=== PATIENT | male | born 1990 | race Caucasian/White ===

== ENCOUNTER 2024-11-24 16:05 | Emergency (ER) | payer OTHER, SELFPAY ==
[2024-11-24 16:06] VITALS: BP 144/102; PULSE 104; RESP 16; TEMP 38.7; O2SAT 98; BMI 27.5
--- NOTE | 2024-11-24 19:07 | EX.ED.DYSGE1 ---
HPI <RADHA Hopkins - Last Filed: 11/24/24 21:13> History of Present Illness Chief Complaint: Fever Narrative Narrative: Patient presenting today due to concerns for fevers, chills, body aches, and a headache he has had over the past 2 days. He also reports pain to the left side of his neck that started after he had been laying in bed for several hours. He denies abdominal pain, nausea, vomiting, urinary symptoms, nasal congestion, and cough. PFSH <RADHA Hopkins - Last Filed: 11/24/24 21:13> PFSH Medical History no medical history Home Medications ?Medication ?Instructions ?Recorded ?Last Taken ?Type minoxidil 2.5 mg tablet 2.5 mg PO DAILY 11/24/24 Unknown History Allergy/AdvReac Type Severity Reaction Status Date / Time No Known Allergies Allergy Verified 11/24/24 16:05 Surgical History no surgical history Social History Smoking Status: Never smoker ROS <RADHA Hopkins - Last Filed: 11/24/24 21:13> ROS ED Constitutional Constitutional ED: Reports chills, fever(s) and sweats ENT ENT ED: Reports other Details: Endorses mild sore throat ; Denies rhinorrhea Respiratory/Chest Respiratory/Chest: Denies cough Gastrointestinal Gastrointestinal: Denies abdominal pain, nausea or vomiting Genitourinary Genitourinary ED: Denies dysuria, hematuria or urinary frequency Musculoskeletal Musculoskeletal: Reports other Details: Endorses body aches and left-sided neck pain Integumentary Denies rash Neurologic Neurologic: Reports headache(s); Denies weakness EXAM <RADHA Hopkins - Last Filed: 11/24/24 21:13> Physical Exam Const Vital Signs: 11/24/24 16:06 11/24/24 19:43 11/24/24 19:44 Temperature 101.7 F H 99.0 F Temperature Source Oral Oral Pulse Rate 104 H 82 Respiratory Rate 16 18 Respiratory Effort Normal Non-Labored Respiratory Pattern Normal Blood Pressure 144/102 H 144/75 H Blood Pressure Mean 116 98 Pulse Ox 98 100 Oxygen Delivery Method Room Air Room Air 11/24/24 20:00 Temperature 99.0 F Temperature Source Oral Pulse Rate 85 Respiratory Rate 18 Respiratory Effort Respiratory Pattern Blood Pressure 133/75 H Blood Pressure Mean 94 Pulse Ox 100 Oxygen Delivery Method Room Air Positive well nourished, well developed and no apparent distress General Appearance ED: well developed HEENT Reports normocephalic, head/scalp atraumatic and TM's clear Tympanic Membrane ED: Yes TM's clear bilateral Mouth ED: Yes moist mucous membranes normal Throat: posterior oropharynx normal, tonsils normal and uvula midline Eyes PERRL and EOMs intact bilaterally Neck full ROM, no lymphadenopathy, supple and no meningeal signs Neck Narrative: Negative Brudzinski and Kernig sign Left paracervical tenderness to palpation, no midline cervical tenderness Chest Wall inspection of chest normal Resp normal respiratory effort and clear to auscultation bilaterally Cardio regular rate and regular rhythm GI soft to palpation, non-tender, non-distended and no masses Back/Spine normal ROM and normal to inspection Extremity normal to inspection and full ROM Neuro oriented x3, CN's II-XII intact bilaterally, moves all extremities, no focal motor deficits and no sensory deficits noted Sensorium / Orientation: awake and alert Psych mental status grossly normal and thought process normal Skin no rashes or lesions noted and no wounds <Dr. Joan Tao DO - Last Filed: 11/24/24 21:09> Physical Exam Const Vital Signs: 11/24/24 16:06 11/24/24 19:43 11/24/24 19:44 Temperature 101.7 F H 99.0 F Temperature Source Oral Oral Pulse Rate 104 H 82 Respiratory Rate 16 18 Respiratory Effort Normal Non-Labored Respiratory Pattern Normal Blood Pressure 144/102 H 144/75 H Blood Pressure Mean 116 98 Pulse Ox 98 100 Oxygen Delivery Method Room Air Room Air 11/24/24 20:00 Temperature 99.0 F Temperature Source Oral Pulse Rate 85 Respiratory Rate 18 Respiratory Effort Respiratory Pattern Blood Pressure 133/75 H Blood Pressure Mean 94 Pulse Ox 100 Oxygen Delivery Method Room Air [facility] <RADHA Hopkins - Last Filed: 11/24/24 21:13> [facility] Narrative Medical decision making narrative: Patient presenting today with fevers, chills, body aches headache, mild scratchy throat he has had over the past 2 days. He is nontoxic-appearing, he is slightly febrile here. He was given Tylenol and IV fluids which did improve his fever. He reports pain to the left side of his neck, he has no meningeal signs on exam, negative Brudzinski and Kernig sign. He has tenderness to the left paracervical muscle, more consistent with a cervical strain and reports his pain started after lying in bed for several hours yesterday. labs obtained, his CBC is unremarkable, minimal elevation of his transaminases. He was given Toradol here for his headache. Viral panel negative. I suspect he has a viral illness. He will be discharged home in stable condition. Recommended staying well-hydrated and alternating Tylenol and ibuprofen for fevers. Recommended he have close follow-up with his PCP. Return instructions discussed. I have personally performed a face to face assessment of the patient and have reviewed the SINA Note. I performed a substantive portion of the visit including all aspects of the following. My lora findings include: History is [patient presents with fever that started 2 days ago. Describes headache and bodyaches. Mild scratchy throat. No significant cough. He said no vomiting or diarrhea. He denies sick contacts. Recently had a cavanaugh in [place] with some friends. Denies any rashes.] Exam is [HEENT-PERRLA, EOMI. Cranial nerves II through XII grossly intact. TMs clear. Mucous membranes moist. No adenopathy. No nuchal rigidity. Negative Kernig's and negative Brudzinski's Cardiovascular-regular rate and rhythm without murmur or ectopy Lungs-clear to auscultation, chest wall stable without crepitus or subcu emphysema Abdomen-normoactive bowel sounds, soft, nontender, no rebound or rigidity, no peritoneal signs. Extremities-intact ?4, normal range of motion, normal pulses, atraumatic] Medical Decison Making [patient presents with fever and headache since yesterday morning. Denies significant cough. No significant sore throat. Clinically looks well. No meningismal symptoms. IV line established. He was given a liter # fluid bolus. CBC with differential obtained showed white count 6.1 with hemoglobin 14.8 and platelet count of 211. Dinh is unremarkable. LFTs showed minimal elevation in the AST at 51 and ALT was 53. Suspect these may be elevated due to viral etiology certainly do not suspect hepatitis. Patient had testing for COVID flu and RSV and this was negative. I do not feel any imaging is indicated. He has no abdominal pain and he has no cough and his lung exam is normal. Patient will be given a dose of Toradol IV. Advised to follow-up with primary care physician within next 2 to 5 days. Vies to treat fever with Motrin or Tylenol.] Other additions or changes: [None] Lab Data Labs: Laboratory Results - last 24 hr 11/24/24 19:26 WBC 6.1 RBC 4.85 Hgb 14.8 Hct 42.6 MCV 87.8 MCH 30.5 MCHC 34.7 RDW Std Deviation 37.8 RDW Coeff of Nyasia 11.9 Plt Count 211 MPV 11.0 Immature Gran % (Auto) 0.300 Neut % (Auto) 85.4 H Lymph % (Auto) 7.1 L Hickman % (Auto) 6.7 Eos % (Auto) 0.2 Baso % (Auto) 0.3 Absolute Neuts (auto) 5.2 Absolute Lymphs (auto) 0.43 L Nucleated RBC % 0 Sodium 135 Potassium 4.1 Chloride 97 L Carbon Dioxide 25.9 Anion Gap 12 BUN 10 Creatinine 0.91 Estim Creat Clear Calc 126.73 Est GFR (MDRD) Non-Af 114 BUN/Creatinine Ratio 10.6 Glucose 159 H Calcium 10.0 Total Bilirubin 0.65 AST 51 H ALT 53 H Alkaline Phosphatase 90 Total Protein 7.4 Albumin 4.5 Globulin 2.9 Albumin/Globulin Ratio 1.6 <Dr. Joan Tao, DO - Last Filed: 11/24/24 21:09> [facility] Narrative Medical decision making narrative: Patient presenting today with fevers, chills, body aches headache, mild scratchy throat he has had over the past 2 days. He is nontoxic-appearing, he is slightly febrile here. He was given Tylenol and IV fluids which did improve his fever. He reports pain to the left side of his neck, he has no meningeal signs on exam, negative Brudzinski and Kernig sign. He has tenderness to the left paracervical muscle, more consistent with a cervical strain and reports his pain started after lying in bed for several hours yesterday. labs obtained, his CBC is unremarkable, minimal elevation of his transaminases. I have personally performed a face to face assessment of the patient and have reviewed the SINA Note. I performed a substantive portion of the visit including all aspects of the following. My lora findings include: History is [patient presents with fever that started 2 days ago. Describes headache and bodyaches. Mild scratchy throat. No significant cough. He said no vomiting or diarrhea. He denies sick contacts. Recently had a cavanaugh in [place] with some friends. Denies any rashes.] Exam is [HEMASHA-PERFR[place], EOMI. Cranial nerves II through XII grossly intact. TMs clear. Mucous membranes moist. No adenopathy. No nuchal rigidity. Negative Kernig's and negative Brudzinski's Cardiovascular-regular rate and rhythm without murmur or ectopy Lungs-clear to auscultation, chest wall stable without crepitus or subcu emphysema Abdomen-normoactive bowel sounds, soft, nontender, no rebound or rigidity, no peritoneal signs. Extremities-intact ?4, normal range of motion, normal pulses, atraumatic] Medical Decison Making [patient presents with fever and headache since yesterday morning. Denies significant cough. No significant sore throat. Clinically looks well. No meningismal symptoms. IV line established. He was given a liter # fluid bolus. CBC with differential obtained showed white count 6.1 with hemoglobin 14.8 and platelet count of 211. Dinh is unremarkable. LFTs showed minimal elevation in the AST at 51 and ALT was 53. Suspect these may be elevated due to viral etiology certainly do not suspect hepatitis. Patient had testing for COVID flu and RSV and this was negative. I do not feel any imaging is indicated. He has no abdominal pain and he has no cough and his lung exam is normal. Patient will be given a dose of Toradol IV. Advised to follow-up with primary care physician within next 2 to 5 days. Vies to treat fever with Motrin or Tylenol.] Other additions or changes: [None] Lab Data Attestation: I reviewed the patient's lab results. Labs: Laboratory Results - last 24 hr 11/24/24 19:26 WBC 6.1 RBC 4.85 Hgb 14.8 Hct 42.6 MCV 87.8 MCH 30.5 MCHC 34.7 RDW Std Deviation 37.8 RDW Coeff of Nyasia 11.9 Plt Count 211 MPV 11.0 Immature Gran % (Auto) 0.300 Neut % (Auto) 85.4 H Lymph % (Auto) 7.1 L Hickman % (Auto) 6.7 Eos % (Auto) 0.2 Baso % (Auto) 0.3 Absolute Neuts (auto) 5.2 Absolute Lymphs (auto) 0.43 L Nucleated RBC % 0 Sodium 135 Potassium 4.1 Chloride 97 L Carbon Dioxide 25.9 Anion Gap 12 BUN 10 Creatinine 0.91 Estim Creat Clear Calc 126.73 Est GFR (MDRD) Non-Af 114 BUN/Creatinine Ratio 10.6 Glucose 159 H Calcium 10.0 Total Bilirubin 0.65 AST 51 H ALT 53 H Alkaline Phosphatase 90 Total Protein 7.4 Albumin 4.5 Globulin 2.9 Albumin/Globulin Ratio 1.6 Discharge Plan Triage Chief Complaint: Fever ED Midlevel Provider: Becky Crouch ED Provider: Joan Tao Dx/Rx/DC Orders Clinical Impression: Acute viral syndrome, Viral syndrome Instructions: ED Viral Syndrome (Adult) Prescriptions: No Action minoxidil 2.5 mg tablet 2.5 mg PO DAILY Primary Care Provider: Julián Morales Referrals: Julián Morales DO [Primary Care Provider] - 5-7 Days Activity Restrictions/Additional Instructions: Follow-up with your PCP and return for any worsening symptoms. Continue taking Tylenol and ibuprofen for fevers as needed. Stay well-hydrated. Print Language: Haitian Disposition Disposition: Home, Self Care
[2024-11-24] MEDS: 0.9% Normal Saline (1000mL) 1,000 ML 999 ML IV (19:19)
--- OUTSIDE RECORDS SUMMARY | 2024-11-24 19:36 | XMS RPT_ITS | CCD ---
Author Organization [facility] Care Team Providers Care Administrative Assistant Coordinator Name Role Phone Assessment, Health Risk Referring Unavaila ble Assessment, Health Risk Attending Unavaila ble Results Test Name Value Interpretation Reference Range Facil ity Mumps Antibody,IgGon 025 MUMPS Ab, IgG 32.5 AU/mL Normal Immune >10.9 [facility] Comment on above: Result Comment: Nega tive <9.0 Equivocal 9.0 - 10.9 Positive >10.9 A positive result generally indicates past exposure to Mumps virus or previous vaccination. Performed By: #### L 509.4015, L3100.0539, L3100.3400, [id number] #### [facility] [address] [place], [address] [facility] Rubeola Titeron RUBEOLA Ab, IgG 38.6 AU/mL Normal Immune >16.4 [facility] Comment on above: Result Comment: Nega tive <13.5 Equivocal 13.5 - 16.4 Positive >16.4 Presence of antibodies to Rubeola is presumptive evidence of immunity except when acute infection is suspected. Performed at: [address] [id number] Field Application Engineer: Hossein Jefferson PhD, Phone: [phone] Performed By: #### L 509.4015, L3100.0539, L3100.3400, [id number] #### [facility] [address] [place], [address] Hepatitis B Surf AB - EMPon 06-21-2024 HEP B Surf Ab Reactive Normal [facility] Comment on above: Result Comment: Non Reactive: Inconsistent with immunity less than <10 mIU/mL Reactive: Consistent with immunity greater than or equal to 10 mIU/mL Performed By: #### L 509.4015, L3100.0539, L3100.3400, [id number] #### [facility] [address] [place], [address] Rubella IgG [facility] 0 06-21-2024 Rubella IgG Reactive Normal Nonreactive [facility] Comment on above: Result Comment: Anti body Results Interpretation of Immune Status Non Reactive Presumed Non-Immune Equivocal Equivocal Reactive Presumed Immune Performed By: #### L 509.4015, L3100.0539, L3100.3400, [id number] #### [facility] [address] [place], [place], [address] Encounters Encounter Date Encounter Type Care Provider Facility Start: 06-21-2024 ambulatory Health Risk Assessment Facility:[facility] Payers Date Payer Category Payer Self-pay Summary Purpose Family History No Family History Records Found Advance Directives No Advanced Directives Records Found Additional Source Comments (unrecognized sect ion and content) No Status Records Found INFORMATION SOURCE (unrecogn ized section and content) DATE CREATED AUTHOR 06/23/2024 [facility] FOR RECORDS PERTAINING TO PATIENTS WHO ARE OR HAVE BEEN ENROLLED IN A CHEMICAL DEPENDENCY/SUBSTANCEABUSE PROGRAM, SOME INFORMATION MAY BE OMITTED. This clinical summary was aggregated from multiple sources. Caution should be exercised in using it in the provision of clinical care. This summary normalizes information from multiple sources, and as a consequence, information in this document may materially change the coding, format and clinical context of patient data. In addition, data may be omitted in some cases. CLINICAL DECISIONS SHOULD BE BASED ON THE PRIMARY CLINICAL RECORDS. [employer] [facility]. provides no warranty or guarantee of the accuracy or completeness of information in this document.
[2024-11-24 19:37] LABS: Hematocrit 42.6 % (40-54); Hemoglobin 14.8 g/dL (13.0-16.5); Immature Granulocytes Count 0.020 X10^3/uL (0.0-0.0); Mean Corp Hgb Conc 34.7 g/dL (32-36); Mean Corpuscular Volume 87.8 fL (80-94); Mean Platelet Vol. 11.0 fl (6.2-12.0); NRBC Flagged by Analyzer 0 % (0-5); POSITIVE DIFFERENTIAL YES; Platelet Count 211 K/mm3 (150-450); RBC Distribution Width CV 11.9 % (11.6-14.6); RBC Distribution Width SD 37.8 fl (35.1-43.9); Red Blood Count 4.85 M/mm3 (4.6-6.2); White Blood Count 6.1 K/mm3 (4.4-11.0)
[2024-11-24 19:44] VITALS: BP 144/75; PULSE 82; RESP 18; TEMP 37.2; O2SAT 100
[2024-11-24 20:00] VITALS: BP 133/75; PULSE 85; RESP 18; TEMP 37.2; O2SAT 100
[2024-11-24 20:01] LABS: AST(SGOT) 51 U/L (<=37); Alanine Aminotransfer ALT/SGPT 53 U/L (<=46); Albumin, Serum 4.5 g/dL (3.5-5.0); Alkaline Phosphatase 90 U/L (40-129); Anion Gap 12 (5-15); BUN 10 mg/dL (4-19); BUN/Creat Ratio 10.6 RATIO (10-20); Calcium,Total 10.0 mg/dL (7.6-11.0); Carbon Dioxide 25.9 mmol/L (21.0-32.0); Chloride 97 mmol/L (98-108); Estimated Creatinine Clearance 126.73 ml/min (50-250); Globulin 2.9 g/dL (2.2-4.2); Glucose 159 mg/dL (70-99); Potassium 4.1 mmol/L (3.3-5.1)
[2024-11-24 21:00] VITALS: BP 133/80; PULSE 91; RESP 16; TEMP 38.7; O2SAT 98
[2024-11-24] MEDS: Ketorolac 30 MG/ML Syringe IV (21:16)
== END 2024-11-24 21:18 | disposition home or self-care (01) ==
PROVIDERS: Physician Assistant; Emergency Provider Emergency Medicine; PCP Family Medicine; Visit Provider Emergency Medicine
DX: B34.9 Viral infection, unspecified (principal); R51.9 Headache, unspecified; J02.9 Acute pharyngitis, unspecified; R50.9 Fever, unspecified
CPT/HCPCS: 80053; 85025; 87631; 99283; A4216

== ENCOUNTER 2024-11-28 17:18 | Outpatient (CLI) | payer OTHER, SELFPAY ==
--- OUTSIDE RECORDS SUMMARY | 2024-11-28 20:52 | XMS RPT_ITS | CCD ---
Author Organization [facility] Inform ion Partnership [facility] Care Team Providers Care Director Call Name Role Phone Dr. Joan Tao DO Emergency Provider [phone] Dr. Julián Morales DO Primary Care Provider Julián Morales Primary Care Unavailable Joan Tao Attending Unavailable Assessment, Health Risk Attending Unavaila ble Assessment, Health Risk Referring Unavaila ble Medications Current Medications Medication Drug Class(es) Dates Sig (Normalized) Sig (Original) minoxidil 2.5 mg oral tablet (1 source) Arteriolar Vasodilator Start: 11-24-2024 take 1 tablet by mouth once daily Minoxidil 2.5 mg tablet Active 2.5 mg PO DAILY November 24, 2024 12:00am Problems Problem Classification Problem Date Documented Da te Episodic/Chronic Viral infection (2 sources) Acute viral disease; Translations: [Viral infection, unspecified] 11-24-2024 Episodic Results Test Name Value Interpretation Reference Range Facil ity Absolute lymphocyte countOrd ered By: Becky Crouch on 11-24-2024 Lymphocytes Auto (Unsp spec) [#/Vol] 0.43 10*3/uL Low 0.83-4.51 [facility] Absolute neutrophil countOrd ered By: Becky Crouch on 11-24-2024 Neutrophils (Bld) [#/Vol] 5.2 10*3/uL 2.0-7.7 [facility] Anion gap in Serum or Plasma Ordered By: Becky Crouch on 11-24-2024 Anion gap [Moles/Vol] 12 mmol/L 5-15 [facility] Automated lymphocyte count a s percentage of total leukocytesOrdered By: Becky Crouch on 11-24-2024 Lymphocytes/100 WBC Auto (Unsp spec) 7.1 % Low 19-41 [facility] BUN/creatinine ratioOrdered By: Becky Crouch on 11-24-2024 Urea nitrogen/Creatinine [Mass ratio] 10.6 mg/mg 10-20 [facility] Basophil percentageOrdered B y: Becky Crouch on 11-24-2024 Basophils/100 WBC (Bld) 0.3 % 0-1 [facility] Bilirubin, totalOrdered By: Becky Crouch on 11-24-2024 Bilirubin [Mass/Vol] 0.65 mg/dL 0.00-1.30 [facility] CBC W/Diff, Automatedon 11-12-2024 Absolute Lymph 0.43 X10 3/uL Low 0.83-4.51 [facility] Comment on above: Performed By: #### L 100.0100, L500.4050 #### [facility] [address] [place], [address] Absolute Neut 5.2 X10 3/uL Normal 2.0-7.7 [facility] Comment on above: Performed By: #### L 100.0100, L500.4050 #### [facility] [address] [place], [address] Basophils/100 WBC (Bld) 0.3 % Normal 0-1 [facility] Comment on above: Performed By: #### L 100.0100, L500.4050 #### [facility] [address] [place], [address] Eosinophils/100 WBC (Bld) 0.2 % Normal 0-5 [facility] Comment on above: Performed By: #### L 100.0100, L500.4050 #### [facility] [address] [place], [address] Erythrocyte distribution width (RBC) [Ratio] 11.9 % Normal 11.6-14.6 [facility] Comment on above: Performed By: #### L 100.0100, L500.4050 #### [facility] [address] [place], [address] Hematocrit (Bld) [Volume fraction] 42.6 % Normal 40-54 [facility] Comment on above: Performed By: #### L 100.0100, L500.4050 #### [facility] [address] [place], [address] Hemoglobin (Bld) [Mass/Vol] 14.8 g/dL Normal 13.0-16.5 [facility] Comment on above: Performed By: #### L 100.0100, L500.4050 #### [facility] [address] [place], [address] IG% 0.300 Normal 0.0-0.9 [facility] Comment on above: Result Comment: IG% - Immature Granulocytes (promyelocytes, myelocytes and metamyelocytes) > 1% indicates that a LEFT SHIFT is Present. Performed By: #### L 100.0100, L500.4050 #### [facility] [address] [place], [address] Lymphocytes/100 WBC (Bld) 7.1 % Low 19-41 [facility] Comment on above: Performed By: #### L 100.0100, L500.4050 #### [facility] [address] [place], [address] MCH (RBC) [Entitic mass] 30.5 pg Normal 27.0-32.0 [facility] Comment on above: Performed By: #### L 100.0100, L500.4050 #### [facility] [address] [place], [address] MCHC (RBC) [Mass/Vol] 34.7 g/dL Normal 32-36 [facility] Comment on above: Performed By: #### L 100.0100, L500.4050 #### [facility] [address] [place], [address] MCV (RBC) [Entitic vol] 87.8 fL Normal 80-94 [facility] Comment on above: Performed By: #### L 100.0100, L500.4050 #### [facility] [address] [place], [address] Monocytes/100 WBC (Bld) 6.7 % Normal 0-10 [facility] Comment on above: Performed By: #### L 100.0100, L500.4050 #### [facility] [address] [place], [address] Neutrophils/100 WBC (Bld) 85.4 % High 47-70 [facility] Comment on above: Performed By: #### L 100.0100, L500.4050 #### [facility] [address] [place], [address] Nucleated RBC (Bld) [#/Vol] 0 10*3/uL Normal 0-5 [facility] Comment on above: Performed By: #### L 100.0100, L500.4050 #### [facility] [address] [place], [address] Platelet mean volume (Bld) [Entitic vol] 11.0 fL Normal 6.2-12.0 [facility] Comment on above: Performed By: #### L 100.0100, L500.4050 #### [facility] [address] [place], [address] Platelets (Bld) [#/Vol] 211 10*3/uL Normal 150-450 [facility] Comment on above: Performed By: #### L 100.0100, L500.4050 #### [facility] [address] [place], [address] RBC (Bld) [#/Vol] 4.85 10*6/uL Normal 4.6-6.2 [facility] Comment on above: Performed By: #### L 100.0100, L500.4050 #### [facility] [address] [place], [address] RDW SD 37.8 fl Normal 35.1-43.9 [facility] Comment on above: Performed By: #### L 100.0100, L500.4050 #### [facility] [address] [place], [address] WBC (Bld) [#/Vol] 6.1 10*3/uL Normal 4.4-11.0 [facility] Comment on above: Performed By: #### L 100.0100, L500.4050 #### [facility] [address] [place], [address] Carbon dioxide, total [Moles /volume] in Central venous bloodOrdered By: Becky Crouch on 11-24-2024 CO2 [Moles/Vol] 25.9 mmol/L 21.0-32.0 [facility] Chloride assayOrdered By: Alyssa Crouch on 11-24-2024 Chloride [Moles/Vol] 97 mmol/L Low 98-108 [facility] Comprehensive Metabolic Prof ilon 11-24-2024 Albumin [Mass/Vol] 4.5 g/dL Normal 3.5-5.0 [facility] Comment on above: Performed By: #### L 100.0100, L500.4050 #### [facility] [address] [place], [address] Albumin/Globulin [Mass ratio] 1.6 {ratio} Normal 0.9-2.4 [facility] Comment on above: Performed By: #### L 100.0100, L500.4050 #### [facility] [address] [place], [address] ALK PHOS 90 U/L Normal 40-129 [facility] Comment on above: Performed By: #### L 100.0100, L500.4050 #### [facility] [address] [place], [address] ALT [Catalytic activity/Vol] 53 U/L High <=46 [facility] Comment on above: Performed By: #### L 100.0100, L500.4050 #### [facility] [address] [place], [address] AST [Catalytic activity/Vol] 51 U/L High <=37 [facility] Comment on above: Performed By: #### L 100.0100, L500.4050 #### [facility] [address] [place], [address] Bilirubin [Mass/Vol] 0.65 mg/dL Normal 0.00-1.30 [facility] Comment on above: Performed By: #### L 100.0100, L500.4050 #### [facility] [address] [place], [address] BUN/CRE 10.6 RATIO Normal 10-20 [facility] Comment on above: Performed By: #### L 100.0100, L500.4050 #### [facility] [address] [place], [address] Calcium [Mass/Vol] 10.0 mg/dL Normal 7.6-11.0 [facility] Comment on above: Performed By: #### L 100.0100, L500.4050 #### [facility] [address] [place], [address] Chloride [Moles/Vol] 97 mmol/L Low 98-108 [facility] Comment on above: Performed By: #### L 100.0100, L500.4050 #### [facility] [address] [place], [address] CO2 [Moles/Vol] 25.9 mmol/L Normal 21.0-32.0 [facility] Comment on above: Performed By: #### L 100.0100, L500.4050 #### [facility] [address] [place], [address] Creatinine [Mass/Vol] 0.91 mg/dL Normal 0.70-1.20 [facility] Comment on above: Performed By: #### L 100.0100, L500.4050 #### [facility] [address] [place], [address] ECRCL 126.73 ml/min Normal 50-250 [facility] Comment on above: Performed By: #### L 100.0100, L500.4050 #### [facility] [address] [place], [address] GAP 12 Normal 5-15 [facility] Comment on above: Performed By: #### L 100.0100, L500.4050 #### [facility] [address] [place], [address] GFR/1.73 sq M.predicted among non-blacks MDRD (S/P/Bld) [Vol rate/Area] 114 mL/min/{1.73_m2} Normal >60 [facility] Comment on above: Result Comment: mL/m in/1.73m2 CKD-EPI Creatinine Equation (2020) Performed By: #### L 100.0100, L500.4050 #### [facility] [address] [place], [address] Globulin (S) [Mass/Vol] 2.9 g/dL Normal 2.2-4.2 [facility] Comment on above: Performed By: #### L 100.0100, L500.4050 #### [facility] [address] [place], [address] Glucose [Mass/Vol] 159 mg/dL High 70-99 [facility] Comment on above: Performed By: #### L 100.0100, L500.4050 #### [facility] [address] [place], [address] Potassium [Moles/Vol] 4.1 mmol/L Normal 3.3-5.1 [facility] Comment on above: Performed By: #### L 100.0100, L500.4050 #### [facility] [address] [place], [address] Sodium [Moles/Vol] 135 mmol/L Normal 133-145 [facility] Comment on above: Performed By: #### L 100.0100, L500.4050 #### [facility] [address] [place], [address] T PROT 7.4 g/dL Normal 5.9-8.4 [facility] Comment on above: Performed By: #### L 100.0100, L500.4050 #### [facility] [address] [place], [address] Urea nitrogen [Mass/Vol] 10 mg/dL Normal 4-19 [facility] Comment on above: Performed By: #### L 100.0100, L500.4050 #### [facility] [address] [place], [address] Emergency Department Summary on 11-24-2024 Emergency Department Summary [facility] Medical Records Department [address] [place] [address] Emergency Department Summary 11/24/24 MR#: [id number] Acct: [id number] Name: NICKIE CHOW Rep #: [id number] : 1990 34 From: Becky GARCIA PCP: Dr. Julián Morales, DO Status:DEP ER Location: ED HPI History of Present Illness Chief Complaint: Fever Narrative Narrative: Patient presenting today due to concerns for fevers, chills, body aches, and a headache he has had over the past 2 days. He also reports pain to the left side of his neck that started after he had been laying in bed for several hours. He denies abdominal pain, nausea, vomiting, urinary symptoms, nasal congestion, and cough. PFSH PFSH Medical History no medical history Home Medications ???Medication ???Instructions ???Recorded ???Last Taken ???Type minoxidil 2.5 mg tablet 2.5 mg PO DAILY 11/24/24 Unknown H istory Allergy/AdvReac Type Severity Reaction Status Date / Time No Known Allergies Allergy Verified 11/24/24 16:05 Surgical History no surgical history Social History Smoking Status: Never smoker ROS ROS ED Constitutional Constitutional ED: Reports chills, fever(s) and sweats ENT ENT ED: Reports other Details: Endorses mild sore throat ; Denies rhinorrhea Respiratory/Chest Respiratory/Chest: Denies cough Gastrointestinal Gastrointestinal: Denies abdominal pain, nausea or vomiting Genitourinary Genitourinary ED: Denies dysuria, hematuria or urinary frequency Musculoskeletal Musculoskeletal: Reports other Details: Endorses body aches and left-sided neck pain Integumentary Denies rash Neurologic Neurologic: Reports headache(s); Denies weakness EXAM Physical Exam Const Vital Signs: 11/24/24 16:06 11/24/24 19:43 11/24/24 19:44 Temperature 101.7 F H 99.0 F Temperature Source Oral Oral Pulse Rate 104 H 82 Respiratory Rate 16 18 Respiratory Effort Normal Non-Labored Respiratory Pattern Normal Blood Pressure 144/102 H 144/75 H Blood Pressure Mean 116 98 Pulse Ox 98 100 Oxygen Delivery Method Room Air Room Air 11/24/24 20:00 Temperature 99.0 F Temperature Source Oral Pulse Rate 85 Respiratory Rate 18 Respiratory Effort Respiratory Pattern Blood Pressure 133/75 H Blood Pressure Mean 94 Pulse Ox 100 Oxygen Delivery Method Room Air Positive well nourished, well developed and no apparent distress General Appearance ED: well developed HEENT Reports normocephalic, head/scalp atraumatic and TM's clear Tympanic Membrane ED: Yes TM's clear bilateral Mouth ED: Yes moist mucous membranes normal Throat: posterior oropharynx normal, tonsils normal and uvula midline Eyes PERRL and EOMs intact bilaterally Neck full ROM, no lymphadenopathy, supple and no meningeal signs Neck Narrative: Negative Brudzinski and Kernig sign Left paracervical tenderness to palpation, no midline cervical tenderness Chest Wall inspection of chest normal Resp normal respiratory effort and clear to auscultation bilaterally Cardio regular rate and regular rhythm GI soft to palpation, non-tender, non-distended and no masses Back/Spine normal ROM and normal to inspection Extremity normal to inspection and full ROM Neuro oriented x3, CN's II-XII intact bilaterally, moves all extremities, no focal motor deficits and no sensory deficits noted Sensorium / Orientation: awake and alert Psych mental status grossly normal and thought process normal Skin no rashes or lesions noted and no wounds Physical Exam Const Vital Signs: 11/24/24 16:06 11/24/24 19:43 11/24/24 19:44 Temperature 101.7 F H 99.0 F Temperature Source Oral Oral Pulse Rate 104 H 82 Respiratory Rate 16 18 Respiratory Effort Normal Non-Labored Respiratory Pattern Normal Blood Pressure 144/102 H 144/75 H Blood Pressure Mean 116 98 Pulse Ox 98 100 Oxygen Delivery Method Room Air Room Air 11/24/24 20:00 Temperature 99.0 F Temperature Source Oral Pulse Rate 85 Respiratory Rate 18 Respiratory Effort Respiratory Pattern Blood Pressure 133/75 H Blood Pressure Mean 94 Pulse Ox 100 Oxygen Delivery Method Room Air MDM MDM MDM Narrative Medical decision making narrative: Patient presenting today with fevers, chills, body aches headache, mild scratchy throat he has had over the past 2 days. He is nontoxic-appearing , he is slightly febrile here. He was given Tylenol and IV fluids which did improve his fever. He reports pain to the left side of his neck, he has no meningeal signs on exam, negative Brudzinski and Kernig sign. He has tenderness to the left (more content not included)... Normal [facility] Eosinophil percentageOrdered By: Becky Crouch on 11-24-2024 Eosinophils/100 WBC (Bld) 0.2 % 0-5 [facility] Erythrocyte distribution wid th ratioOrdered By: Becky Crouch on 11-24-2024 Erythrocyte distribution width (RBC) [Ratio] 11.9 % 11.6-14.6 [facility] Erythrocyte distribution wid th standard deviationOrdered By: Becky Crouch on 11-24-2024 Erythrocyte distribution width (RBC) [Ratio] 37.8 fl 35.1-43.9 [facility] Glomerular filtration rate ( GFR) estimation/1.73 sq m using serum, plasma, or whole bOrdered By: Becky Crouch on 11-24-2024 GFR/1.73 sq M.predicted among non-blacks MDRD (S/P/Bld) [Vol rate/Area] 114 mL/min/{1.73_m2} >60 [facility] Comment on above: mL/min/1.73m2 CKD-EP I Creatinine Equation (2020) Hematocrit Auto (Bld) [Volum e fraction]Ordered By: Becky Crouch on 11-24-2024 Hematocrit (Bld) [Volume fraction] 42.6 % 40-54 [facility] Hemoglobin measurementOrdere d By: Becky Crouch on 11-24-2024 Hemoglobin (Bld) [Mass/Vol] 14.8 g/dL 13.0-16.5 [facility] Immature granulocytes/100 WB C Auto (Bld)Ordered By: Becky Crouch on 11-24-2024 Immature granulocytes/100 WBC (Bld) 0.300 % 0.0-0.9 [facility] Comment on above: IG% - Immature Granu locytes (promyelocytes, myelocytes and metamyelocytes) > 1% indicates that a LEFT SHIFT is Present. Influenza virus A and B and SARS-CoV-2 (COVID-19) and Respiratory syncytial virus RNAOrdered By: Becky Crouch on 11-24-2024 SARS-CoV-2 (COVID-19) RNA ADDY+probe Ql (Unsp spec) [facility] - Chemistry and C hemistry - challengeOrdered By: Becky Crouch on 11-24-2024 AST [Catalytic activity/Vol] 51 U/L High <38 [facility] M100.678on 11-24-2024 M100.678 SARS-CoV-2 (COVID 19) Negative INFLUENZA A Negative INFLUENZA B Negative RSV PCR Negative Normal [facility] Comment on above: Performed By: #### M 100.678 #### [facility] [address] [place], [place], [id number] MCV (mean corpuscular volume ) determinationOrdered By: Becky Crouch on 11-24-2024 MCV (RBC) [Entitic vol] 87.8 fL 80-94 [facility] Mean corpuscular hemoglobin (MCH) determinationOrdered By: Becky Crouch on 11-24-2024 MCH (RBC) [Entitic mass] 30.5 pg 27.0-32.0 [facility] Mean corpuscular hemoglobin concentration (MCHC) determinationOrdered By: Becky Crouch on 11-24-2024 MCHC (RBC) [Mass/Vol] 34.7 g/dL 32-36 [facility] Mean platelet volume determi nationOrdered By: Becky Crouch on 11-24-2024 Platelet mean volume (Bld) [Entitic vol] 11.0 fL 6.2-12.0 [facility] Monocyte percentageOrdered B y: Becky Crouch on 11-24-2024 Monocytes/100 WBC (Bld) 6.7 % 0-10 [facility] Neutrophil percentageOrdered By: Becky Crouch on 11-24-2024 Neutrophils/100 WBC (Bld) 85.4 % High 47-70 [facility] Nucleated red blood cell per centageOrdered By: Becky Crouch on 11-24-2024 Nucleated RBC/100 WBC (Bld) [Ratio] 0 % 0-5 [facility] Platelet countOrdered By: Alyssa Crouch on 11-24-2024 Platelets (Bld) [#/Vol] 211 10*3/uL 150-450 [facility] Potassium measurement (mass/ volume)Ordered By: Becky Crouch on 11-24-2024 Potassium (Unsp spec) [Mass/Vol] 4.1 mmol/L 3.3-5.1 [facility] RBC Auto (Bld) [#/Vol]Ordere d By: Becky Crouch on 11-24-2024 RBC (Bld) [#/Vol] 4.85 10*6/uL 4.6-6.2 [facility] Serum creatinine measurement (mass/volume)Ordered By: Becky Crouch on 11-24-2024 Creatinine [Mass/Vol] 0.91 mg/dL 0.70-1.20 [facility] Serum globulin measurementOr dered By: Becky Crouch on 11-24-2024 Globulin (S) [Mass/Vol] 2.9 g/dL 2.2-4.2 [facility] Serum glucose measurement (m ass/volume)Ordered By: Becky Crouch on 11-24-2024 Glucose [Mass/Vol] 159 mg/dL High 70-99 [facility] Serum or plasma alanine goddard otransferase (ALT) measurementOrdered By: Becky Crouch on 11-24-2024 ALT [Catalytic activity/Vol] 53 U/L High <47 [facility] Serum or plasma albumin gavino urement (mass/volume)Ordered By: Becky Crouch on 11-24-2024 Albumin [Mass/Vol] 4.5 g/dL 3.5-5.0 [facility] Serum or plasma albumin/glob ulin mass ratioOrdered By: Becky Crouch on 11-24-2024 Albumin/Globulin [Mass ratio] 1.6 {ratio} 0.9-2.4 [facility] Serum or plasma alkaline gab sphatase measurementOrdered By: Becky Crouch on 11-24-2024 ALP [Catalytic activity/Vol] 90 U/L 40-129 [facility] Serum or plasma calcium gavino urement (mass/volume)Ordered By: Becky Crouch on 11-24-2024 Calcium [Mass/Vol] 10.0 mg/dL 7.6-11.0 [facility] Serum or plasma urea nitroge n measurement (mass/volume)Ordered By: Becky Crouch on 11-24-2024 Urea nitrogen [Mass/Vol] 10 mg/dL 4-19 [facility] Sodium levelOrdered By: Dameon Crouch on 11-24-2024 Sodium [Moles/Vol] 135 mmol/L 133-145 [facility] Total proteinOrdered By: Jeff Crouch on 11-24-2024 Protein [Mass/Vol] 7.4 g/dL 5.9-8.4 [facility] White blood cell (WBC) count Ordered By: Becky Crouch on 11-24-2024 WBC (Bld) [#/Vol] 6.1 10*3/uL 4.4-11.0 [facility] Mumps Antibody,IgGon 025 MUMPS Ab, IgG 32.5 AU/mL Normal Immune >10.9 [facility] Comment on above: Result Comment: Nega tive <9.0 Equivocal 9.0 - 10.9 Positive >10.9 A positive result generally indicates past exposure to Mumps virus or previous vaccination. Performed By: #### L 3400.1750, L509.4015, L3100.0539, L3100.3400 #### [facility] [address] [place], [place], [id number] [facility] Rubeola Titeron 02-0 RUBEOLA Ab, IgG 38.6 AU/mL Normal Immune >16.4 [facility] Comment on above: Result Comment: Nega tive <13.5 Equivocal 13.5 - 16.4 Positive >16.4 Presence of antibodies to Rubeola is presumptive evidence of immunity except when acute infection is suspected. Performed at: [address] [id number] [employer] Technician: Hossein Jefferson PhD, Phone: [phone] Performed By: #### L 3400.1750, L509.4015, L3100.0539, L3100.3400 #### [facility] [address] [place], [address] Hepatitis B Surf AB - EMPon 06-21-2024 HEP B Surf Ab Reactive Normal [facility] Comment on above: Result Comment: Non Reactive: Inconsistent with immunity less than <10 mIU/mL Reactive: Consistent with immunity greater than or equal to 10 mIU/mL Performed By: #### L 3400.1750, L509.4015, L3100.0539, L3100.3400 #### [facility] [address] [place], [address] Rubella IgG [facility] EM[facility]on 0 06-21-2024 Rubella IgG Reactive Normal Nonreactive [facility] Comment on above: Result Comment: Anti body Results Interpretation of Immune Status Non Reactive Presumed Non-Immune Equivocal Equivocal Reactive Presumed Immune Performed By: #### L 3400.1750, L509.4015, L3100.0539, L3100.3400 #### [facility] [place], [address] Vital Signs Date Time Vital Sign Value Performing Clinician Facility 11-24-2024 21:00-0400 Body temperature 101.7 [degF] Dr. Joan Tao DO Work Phone: [facility] 11-24-2024 21:00-0400 Diastolic blood pressure 80 mm[Hg] Dr. Joan Tao DO Work Phone: [facility] 11-24-2024 21:00-0400 Heart rate 91 /min Dr. Joan Tao DO Work Phone: [facility] 11-24-2024 21:00-0400 Respiratory rate 16 /min Dr. Joan Tao DO Work Phone: [facility] 11-24-2024 21:00-0400 SaO2% (BldA) [Mass fraction] 98 % Dr. Joan Tao DO Work Phone: [facility] 11-24-2024 21:00-0400 Systolic blood pressure 133 mm[Hg] Dr. Joan Tao DO Work Phone: [facility] 11-24-2024 16:06-0400 Body height 182.[address] Joan Tao DO Work Phone: [facility] 11-24-2024 16:06-0400 Body mass index (BMI) [Ratio] 27.5 kg/m2 Dr. Joan Tao DO Work Phone: [facility] 11-24-2024 16:06-0400 Body weight 92.[address] Joan Tao DO Work Phone: [facility] Encounters Encounter Date Encounter Type Care Provider Facility Start: 11-24-2024 End: 11-24-2024 Emergency department patient visit Dr. Joan Tao DO Work Phone: -Emergency Department Work Phone: Start: 06-21-2024 ambulatory Health Risk Assessment Facility:[facility] Procedures Date Procedure Procedure Detail Performing Clinician Start: 11-24-[address] Joan Tao DO Work Phone: Start: 11-24-2024 SARS-CoV-2, Influenz a & RSV (PCR) Dr. Joan Tao DO Work Phone: Plan of Treatment Date Care Activity Detail Author Start: 11-24-2024 [facility] Patient Education ED Viral Syndr ome (Adult) [facility] Work Phone: Immunizations Immunization Date Immunization Notes Care Provider Fa cility 06-21-2024 influenza, seasonal, injectable, preservative free Dr. Joan Tao DO Work Phone: [facility] Payers Date Payer Category Payer Unknown [id number] 2024 Self-pay Unknown [id number] Social History Date Type Detail Facility Start: 11-24-2024 Tobacco smoking stat us [facility] Never smoked tobacco (finding) [facility] Start: 1990 Sex Assigned At Male W [facility] Mental Status Date Assessment Result Facility 11-24-2024 Cognitive function Level Of Cons ciousness Awake;Alert;Appropriate;Follow s Commands [facility] Work Phone: Evaluation note Note Date & Type Note Facility Evaluation note No assessment information availa ble [facility] Work Phone: Hospital Discharge instructions Note Date & Type Note Facility Hospital Discharge instructions Additional Instructions Follow-up with your PCP and return for any worsening symptoms. Continue taking Tylenol and ibuprofen for fevers as needed. Stay well-hydrated. [facility] Work Phone: Reason for referral (narrative) Note Date & Type Note Facility Reason for referral (narrative) No reason for referral information available [facility] Work Phone: Chief Complaint and Reason for Visit Chief Complaint Admit Date FEVER November 24, 2024 4:05 pm Advance Directives No Advanced Directives Records Found Advance Directive Response Recorded Date/ Time Do you have a Healthcare Power of Resolution Rep? No November 24, 2024 7:42pm Summary Purpose Family History No Family History Records Found Additional Source Comments Care Teams (unrecognized sec tion and content) Team Status: Active Member Role/Relationship Status Dates Dr. Julián Morales , DO Primary Care Provider Active Team Status: Inactive Member Role/Relationship Status Dates Dr. Joan Tao DO Emergency Provider Active S tart: November 24, 2024 End: November 24, 2024 Dr. Julián Morales , DO Primary Care Provider Active Start: November 24, 2024 End: November 24, 2024 Goals (unrecognized section and content) Goals may be documented in a n alternate section (unrecognized sect ion and content) No Status Records Found INFORMATION SOURCE (unrecogn ized section and content) DATE CREATED AUTHOR 11/27/2024 [facility] FOR RECORDS PERTAINING TO PATIENTS WHO [...] BE BASED ON THE PRIMARY CLINICAL RECORDS. [employer] provides no warranty or guarantee of the accuracy or completeness of information in this document.
== END 2024-11-28 23:59 | disposition home or self-care (01) ==
LOC: LAB 17:20
PROVIDERS: PCP Family Medicine; Referring Provider Family Medicine; Visit Provider Family Medicine
DX: R50.9 Fever, unspecified (principal); R51.9 Headache, unspecified

== ENCOUNTER 2024-11-28 17:33 | Outpatient (CLI) | payer OTHER, SELFPAY ==
[2024-11-30 12:08] LABS: Lyme Scn Total Ab w/Rflx Positive (Negative)
== END 2024-11-28 23:59 | disposition home or self-care (01) ==
LOC: LABSPEC 17:34
PROVIDERS: PCP Family Medicine; Visit Provider Family Medicine
DX: R50.9 Fever, unspecified (principal); R51.9 Headache, unspecified
CPT/HCPCS: 86618